=== PATIENT | female | born 1995 | race Caucasian/White ===

== ENCOUNTER 2018-07-12 12:22 | Outpatient (CLI) | payer BC ==
[2018-07-12 13:26] LABS: APPEARANCE,URINE CLEAR; BILIRUBIN,URINE NEGATIVE (NEGATIVE); COLOR,URINE STRAW; GLUCOSE, URINE NEGATIVE (NEGATIVE); KETONES,URINE NEGATIVE (NEGATIVE); LEUKOCYTE ESTERASE,URINE NEGATIVE (NEGATIVE); NITRITE,URINE NEGATIVE (NEGATIVE); PROTEIN,URINE NEGATIVE (NEGATIVE); URINE SPECIFIC GRAVITY 1.003; UROBILINOGEN,URINE NEGATIVE mg/dL (<2.0)
[2018-07-12 13:35] LABS: URINE AMPHETAMINES SCREEN NEGATIVE; URINE BARBITURATES SCREEN NEGATIVE; URINE BENZODIAZEPINES SCREEN NEGATIVE; URINE COCAINE SCREEN NEGATIVE; URINE MARIJUANA (THC) SCREEN NEGATIVE; URINE METHADONE SCREEN NEGATIVE; URINE PHENCYCLIDINE SCREEN NEGATIVE
[2018-07-12 13:42] LABS: UR PRO/CREAT RATIO RESULT 1.3 mg/mg (0.0-0.2); URINE CREATININE 14.9 mg/dL (16-327); URINE PROTEIN 19.3 mg/dL (<12)
[2018-07-12 13:54] LABS: ABSOLUTE EOSINOPHILS # (AUTO) 0.1 10^3/uL (0.0-0.6); ABSOLUTE LYMPHOCYTES (AUTO) 1.9 10^3/uL (0.5-4.7); ABSOLUTE MONOCYTES (AUTO) 0.8 10^3/uL (0.1-1.4); BASOPHILS % (AUTO) 0.3 % (0-2); EOSINOPHILS % (AUTO) 0.6 % (0-6); HEMATOCRIT 33.9 % (36.0-47.0); HEMOGLOBIN 11.6 g/dL (12.0-15.5); LYMPHOCYTES % (AUTO) 19.8 % (13-45); MEAN CORPUSCULAR HEMOGLOBIN 29.5 pg (27.0-33.4); MEAN CORPUSCULAR HGB CONC 34.1 g/dL (32.0-36.0); MEAN CORPUSCULAR VOLUME 86 fl (80-97); MONOCYTES % (AUTO) 7.7 % (3-13); PLATELET COUNT 240 10^3/uL (150-450); RED BLOOD COUNT 3.92 10^6/uL (3.72-5.28); RED CELL DISTRIBUTION WIDTH 13.2 % (11.5-14.0); SEGMENTED NEUTROPHILS % (AUTO) 71.6 % (42-78); TOTAL CELLS COUNTED % (AUTO) 100 %; WHITE BLOOD COUNT 9.8 10^3/uL (4.0-10.5)
[2018-07-12 14:13] LABS: ALANINE AMINOTRANSFERASE 29 U/L (9-52); ALKALINE PHOSPHATASE 151 U/L (38-126); ASPARTATE AMINO TRANSFERASE 21 U/L (14-36); BILIRUBIN,DIRECT 0.1 mg/dL (0.0-0.4); BILIRUBIN,TOTAL 0.2 mg/dL (0.2-1.3); BLOOD UREA NITROGEN 4 mg/dL (7-20); CALCIUM 9.5 mg/dL (8.4-10.2); GLUCOSE 78 mg/dL (75-110); POTASSIUM 4.6 mmol/L (3.6-5.0); TOTAL PROTEIN 5.5 g/dL (6.3-8.2); URIC ACID 3.7 mg/dL (2.5-6.2)
[2018-07-12 14:19] LABS: CARBON DIOXIDE 26 mmol/L (22-30); CHLORIDE 110 mmol/L (98-107); SODIUM 137.1 mmol/L (137-145)
[2018-07-12 14:23] LABS: ANION GAP 1 (5-19)
--- NOTE | 2018-07-12 16:56 | Non Stress Test Report ---
Non Stress Test Datetime Report Generated by CPN: 07/12/2018 16:56 DEMOGRAPHIC EGA NST: 32.4 INDICATION Indication for Study: Other Indication for Study (NST) Other: patient took b/p at home was high VITAL SIGNS Temperature - NST: 98.0 RESP - NST: 16 MONITORING Monitor Explained: Monitor Explained; Test Explained; Patient Verbalized Understanding Time on Monitor: 07/12/2018 14:06 Time off Monitor: 07/12/2018 14:40 NST Duration: 34 NST INTERVENTIONS NST Interventions: PO Hydration; Reposition Patient BABY A: [id number] BABY A Movement : Present Contraction Frequency : 0 FHR Baseline : 140 Accelerations : 15X15 Decelerations : None Variability : Moderate 6-25bpm NST Review: Meets Criteria for Reactive NST NST Review and Verified By : Alyx Nur NST Results: Reactive NST Results: Reactive NST REPORT Report Trigger: Send Report
--- NOTE | 2018-07-12 16:57 | RADIOLOGY REPORT (SQ) ---
EXAM DESCRIPTION: U/S OB LIMITED COMPLETED DATE/TIME: 07/12/2018 3:31 pm REASON FOR STUDY: pt request to look at placenta COMPARISON: None. TECHNIQUE: Limited transabdominal grayscale ultrasound for evaluation of specific requested obstetri cortney parameters. LIMITATIONS: None. FINDINGS: FHR: 135 beats per minute. PRESENTATION: Cephalic. PLACENTA: Anterior ANATOMY: Not assessed OTHER: No other significant findings. IMPRESSION: LIMITED OBSTETRICAL ULTRASOUND WITH MEASURED PARAMETERS DELINEATED ABOVE. Trimester of : Third trimester - 28 weeks to delivery. TECHNICAL DOCUMENTATION: JOB ID: [id number]- All Rights Reserved Reading location - IP/workstation name: [email or web address]
== END 2018-07-12 17:03 | disposition home or self-care (01) ==
LOC: LC 12:22
PROVIDERS: ATTEND Obstetrics & Gynecology
PROC: 4A1HXCZ Monitoring of Products of Conception, Cardiac Rate, External Approach (ICD-10-PCS; principal; 2018-07-12)
DX: O16.3 Unspecified maternal hypertension, third trimester (principal); Z3A.32 32 weeks gestation of pregnancy
CPT/HCPCS: 36415; 59025; 76815; 80053; 80307; 81001; 82570; 83615; 84156; 84550; 85025

== ENCOUNTER 2018-07-13 17:02 | Outpatient (CLI) | payer BC ==
--- NOTE | 2018-07-13 17:53 | Non Stress Test Report ---
Non Stress Test Datetime Report Generated by CPN: 07/13/2018 17:52 DEMOGRAPHIC EGA NST: 32.5 INDICATION Indication for Study: Other Indication for Study (NST) Other: LC URINE RESULTS Urine Glucose - NST: Positive MONITORING Monitor Explained: Monitor Explained; Test Explained; Patient Verbalized Understanding Time on Monitor: 07/13/2018 17:23 Time off Monitor: 07/13/2018 17:46 NST Duration: 23 NST INTERVENTIONS NST Interventions: None Physician Notified NST: Dr Luis BABY A: [id number] BABY A Movement : Present Contraction Frequency : none FHR Baseline : 145 Accelerations : 15X15 Variability : Moderate 6-25bpm NST Review: Meets Criteria for Reactive NST NST Results: Reactive NST REPORT Report Trigger: Send Report
[2018-07-13 18:27] LABS: 24 HOUR URINE PROTEIN RESULT 708 mg/day (42-225); URINE PROTEIN 19.6 mg/dL (<12)
== END 2018-07-13 18:58 | disposition home or self-care (01) ==
LOC: LC 17:02
PROVIDERS: ATTEND Obstetrics & Gynecology
PROC: 4A1HXCZ Monitoring of Products of Conception, Cardiac Rate, External Approach (ICD-10-PCS; principal; 2018-07-13)
DX: O16.3 Unspecified maternal hypertension, third trimester (principal); Z3A.32 32 weeks gestation of pregnancy
CPT/HCPCS: 59025; 84156

== ENCOUNTER 2018-07-24 16:10 | Outpatient (CLI) | payer BC ==
[2018-07-24 16:46] LABS: APPEARANCE,URINE CLEAR; BILIRUBIN,URINE NEGATIVE (NEGATIVE); COLOR,URINE COLORLESS; GLUCOSE, URINE NEGATIVE (NEGATIVE); KETONES,URINE NEGATIVE (NEGATIVE); LEUKOCYTE ESTERASE,URINE NEGATIVE (NEGATIVE); NITRITE,URINE NEGATIVE (NEGATIVE); PROTEIN,URINE NEGATIVE (NEGATIVE); URINE SPECIFIC GRAVITY 1.002; UROBILINOGEN,URINE NEGATIVE mg/dL (<2.0)
[2018-07-24 17:02] LABS: ABSOLUTE EOSINOPHILS # (AUTO) 0.1 10^3/uL (0.0-0.6); ABSOLUTE LYMPHOCYTES (AUTO) 2.3 10^3/uL (0.5-4.7); ABSOLUTE MONOCYTES (AUTO) 0.9 10^3/uL (0.1-1.4); ABSOLUTE NEUT (AUTO) 6.7 10^3/uL (1.7-8.2); BASOPHILS % (AUTO) 0.3 % (0-2); EOSINOPHILS % (AUTO) 0.9 % (0-6); HEMATOCRIT 35.9 % (36.0-47.0); HEMOGLOBIN 12.3 g/dL (12.0-15.5); LYMPHOCYTES % (AUTO) 22.6 % (13-45); MEAN CORPUSCULAR HEMOGLOBIN 29.3 pg (27.0-33.4); MEAN CORPUSCULAR HGB CONC 34.2 g/dL (32.0-36.0); MEAN CORPUSCULAR VOLUME 86 fl (80-97); MONOCYTES % (AUTO) 9.4 % (3-13); PLATELET COUNT 254 10^3/uL (150-450); RED BLOOD COUNT 4.19 10^6/uL (3.72-5.28); RED CELL DISTRIBUTION WIDTH 13.3 % (11.5-14.0); SEGMENTED NEUTROPHILS % (AUTO) 66.8 % (42-78); TOTAL CELLS COUNTED % (AUTO) 100 %; WHITE BLOOD COUNT 10.1 10^3/uL (4.0-10.5)
[2018-07-24 17:13] LABS: UR PRO/CREAT RATIO RESULT 2.9 mg/mg (0.0-0.2); URINE CREATININE 15.3 mg/dL (16-327); URINE PROTEIN 44.6 mg/dL (<12)
[2018-07-24 17:23] LABS: URINE AMPHETAMINES SCREEN NEGATIVE; URINE BARBITURATES SCREEN NEGATIVE; URINE BENZODIAZEPINES SCREEN NEGATIVE; URINE COCAINE SCREEN NEGATIVE; URINE MARIJUANA (THC) SCREEN NEGATIVE; URINE METHADONE SCREEN NEGATIVE; URINE PHENCYCLIDINE SCREEN NEGATIVE
[2018-07-24 17:30] LABS: ALANINE AMINOTRANSFERASE 15 U/L (9-52); ALBUMIN 3.3 g/dL (3.5-5.0); ALKALINE PHOSPHATASE 192 U/L (38-126); ANION GAP 9 (5-19); ASPARTATE AMINO TRANSFERASE 19 U/L (14-36); BILIRUBIN,DIRECT 0.2 mg/dL (0.0-0.4); BILIRUBIN,TOTAL 0.3 mg/dL (0.2-1.3); BLOOD UREA NITROGEN 5 mg/dL (7-20); CALCIUM 9.4 mg/dL (8.4-10.2); CARBON DIOXIDE 22 mmol/L (22-30); CHLORIDE 107 mmol/L (98-107); SODIUM 137.7 mmol/L (137-145); TOTAL PROTEIN 5.8 g/dL (6.3-8.2); URIC ACID 4.3 mg/dL (2.5-6.2)
[2018-07-24 17:38] LABS: GLUCOSE 62 mg/dL (75-110)
== END 2018-07-24 17:56 | disposition home or self-care (01) ==
LOC: LC 16:10
PROVIDERS: ATTEND Obstetrics & Gynecology Gynecology
PROC: 4A1HXCZ Monitoring of Products of Conception, Cardiac Rate, External Approach (ICD-10-PCS; principal; 2018-07-24)
DX: O47.03 False labor before 37 completed weeks of gestation, third trimester (principal); O16.3 Unspecified maternal hypertension, third trimester; Z3A.24 24 weeks gestation of pregnancy
CPT/HCPCS: 36415; 80053; 80307; 81001; 82570; 83615; 84156; 84550; 85025

== ENCOUNTER 2018-08-05 16:05 | Outpatient (CLI) | payer BC ==
[2018-08-05 16:38] LABS: APPEARANCE,URINE CLEAR; BILIRUBIN,URINE NEGATIVE (NEGATIVE); COLOR,URINE STRAW; GLUCOSE, URINE NEGATIVE (NEGATIVE); KETONES,URINE NEGATIVE (NEGATIVE); LEUKOCYTE ESTERASE,URINE TRACE (NEGATIVE); NITRITE,URINE NEGATIVE (NEGATIVE); PROTEIN,URINE 100 mg/dL (NEGATIVE); URINE SPECIFIC GRAVITY 1.004; UROBILINOGEN,URINE NEGATIVE mg/dL (<2.0)
[2018-08-05 16:58] LABS: URINE AMPHETAMINES SCREEN NEGATIVE; URINE BARBITURATES SCREEN NEGATIVE; URINE BENZODIAZEPINES SCREEN NEGATIVE; URINE COCAINE SCREEN NEGATIVE; URINE MARIJUANA (THC) SCREEN NEGATIVE; URINE METHADONE SCREEN NEGATIVE; URINE PHENCYCLIDINE SCREEN NEGATIVE
[2018-08-05 17:08] LABS: UR PRO/CREAT RATIO RESULT 6.4 mg/mg (0.0-0.2); URINE CREATININE 28.9 mg/dL (16-327); URINE PROTEIN 183.6 mg/dL (<12)
[2018-08-05] MEDS ORDERED: OXYCODONE-ACETAMINOPHEN 5-325 MG TABLET ONE (17:27)
[2018-08-05] MEDS ORDERED: OXYCODONE-ACETAMINOPHEN 5-325 MG TABLET PO ONE (17:30)
[2018-08-05 17:38] LABS: ABSOLUTE EOSINOPHILS # (AUTO) 0.1 10^3/uL (0.0-0.6); ABSOLUTE LYMPHOCYTES (AUTO) 1.7 10^3/uL (0.5-4.7); ABSOLUTE MONOCYTES (AUTO) 0.7 10^3/uL (0.1-1.4); ABSOLUTE NEUT (AUTO) 6.5 10^3/uL (1.7-8.2); BASOPHILS % (AUTO) 0.3 % (0-2); EOSINOPHILS % (AUTO) 0.9 % (0-6); HEMATOCRIT 33.4 % (36.0-47.0); HEMOGLOBIN 11.6 g/dL (12.0-15.5); LYMPHOCYTES % (AUTO) 18.8 % (13-45); MEAN CORPUSCULAR HEMOGLOBIN 29.6 pg (27.0-33.4); MEAN CORPUSCULAR HGB CONC 34.6 g/dL (32.0-36.0); MEAN CORPUSCULAR VOLUME 85 fl (80-97); MONOCYTES % (AUTO) 7.5 % (3-13); PLATELET COUNT 219 10^3/uL (150-450); RED BLOOD COUNT 3.91 10^6/uL (3.72-5.28); RED CELL DISTRIBUTION WIDTH 13.1 % (11.5-14.0); SEGMENTED NEUTROPHILS % (AUTO) 72.5 % (42-78); TOTAL CELLS COUNTED % (AUTO) 100 %
[2018-08-05 18:05] LABS: ALANINE AMINOTRANSFERASE 21 U/L (9-52); ALBUMIN 2.6 g/dL (3.5-5.0); ALKALINE PHOSPHATASE 180 U/L (38-126); ANION GAP 5 (5-19); ASPARTATE AMINO TRANSFERASE 19 U/L (14-36); BILIRUBIN,DIRECT 0.1 mg/dL (0.0-0.4); BILIRUBIN,TOTAL 0.2 mg/dL (0.2-1.3); BLOOD UREA NITROGEN 7 mg/dL (7-20); CALCIUM 8.6 mg/dL (8.4-10.2); CARBON DIOXIDE 23 mmol/L (22-30); CHLORIDE 108 mmol/L (98-107); GLUCOSE 87 mg/dL (75-110); POTASSIUM 3.9 mmol/L (3.6-5.0); SODIUM 136.1 mmol/L (137-145); URIC ACID 5.1 mg/dL (2.5-6.2)
--- NOTE | 2018-08-05 18:26 | Non Stress Test Report ---
Non Stress Test Datetime Report Generated by CPN: 08/05/2018 18:25 DEMOGRAPHIC EGA NST: 36.0 INDICATION Indication for Study: Ordered by Provider MONITORING Monitor Explained: Monitor Explained; Test Explained; Patient Verbalized Understanding Time on Monitor: 08/05/2018 16:22 Time off Monitor: 08/05/2018 17:43 NST Duration: 81 NST INTERVENTIONS NST Interventions: None Physician Notified NST: A. Andrade, CNM BABY A: [id number] BABY A Movement : Present Contraction Frequency : none FHR Baseline : 135 Accelerations : 15X15 Decelerations : None Variability : Moderate 6-25bpm NST Review: Does Not Meet Criteria for Reactive NST NST Review and Verified By : Mónica Mendoza RN NST Results: Reactive NST REPORT Report Trigger: Send Report
== END 2018-08-05 18:29 | disposition home or self-care (01) ==
LOC: LC 16:05
PROVIDERS: ATTEND Obstetrics & Gynecology
PROC: 4A1HXCZ Monitoring of Products of Conception, Cardiac Rate, External Approach (ICD-10-PCS; principal; 2018-08-05)
DX: Z34.93 Encounter for supervision of normal pregnancy, unspecified, third trimester (principal)
CPT/HCPCS: 36415; 59025; 80053; 80307; 81005; 82570; 83615; 84156; 84550; 85025

== ENCOUNTER 2018-08-08 16:14 | Inpatient (IN) | payer BC ==
[2018-08-08 17:13] LABS: APPEARANCE,URINE CLEAR; BILIRUBIN,URINE NEGATIVE (NEGATIVE); COLOR,URINE STRAW; GLUCOSE, URINE NEGATIVE (NEGATIVE); KETONES,URINE NEGATIVE (NEGATIVE); LEUKOCYTE ESTERASE,URINE NEGATIVE (NEGATIVE); NITRITE,URINE NEGATIVE (NEGATIVE); PROTEIN,URINE 100 mg/dL (NEGATIVE); URINE SPECIFIC GRAVITY 1.006; UROBILINOGEN,URINE NEGATIVE mg/dL (<2.0)
[2018-08-08 17:29] LABS: URINE AMPHETAMINES SCREEN NEGATIVE; URINE BARBITURATES SCREEN NEGATIVE; URINE BENZODIAZEPINES SCREEN NEGATIVE; URINE COCAINE SCREEN NEGATIVE; URINE MARIJUANA (THC) SCREEN NEGATIVE; URINE METHADONE SCREEN NEGATIVE
[2018-08-08 17:32] LABS: URINE PHENCYCLIDINE SCREEN NEGATIVE
--- NOTE | 2018-08-08 17:32 | Non Stress Test Report ---
Non Stress Test Datetime Report Generated by CPN: 08/08/2018 17:32 DEMOGRAPHIC EGA NST: 36.3 INDICATION Indication for Study: Ordered by Provider MONITORING Monitor Explained: Monitor Explained; Test Explained; Patient Verbalized Understanding Time on Monitor: 08/08/2018 17:00 Time off Monitor: 08/08/2018 17:31 NST Duration: 31 NST INTERVENTIONS NST Interventions: None Physician Notified NST: Dr. Luis BABY A: [id number] BABY A Movement : Present Movement : Present Contraction Frequency : none FHR Baseline : 135 Accelerations : 15X15 Decelerations : None Variability : Moderate 6-25bpm NST Review: Meets Criteria for Reactive NST NST Review: Meets Criteria for Reactive NST NST Review and Verified By : Abraham Reza RN NST Results: Reactive NST REPORT Report Trigger: Send Report
[2018-08-08 17:36] LABS: URINE CREATININE 41.3 mg/dL (16-327)
[2018-08-08 17:46] LABS: UR PRO/CREAT RATIO RESULT 10.3 mg/mg (0.0-0.2); URINE PROTEIN 423.7 mg/dL (<12)
[2018-08-08 17:59] LABS: HEMATOCRIT 34.4 % (36.0-47.0); HEMOGLOBIN 11.8 g/dL (12.0-15.5); MEAN CORPUSCULAR HGB CONC 34.3 g/dL (32.0-36.0); MEAN CORPUSCULAR VOLUME 85 fl (80-97); PLATELET COUNT 242 10^3/uL (150-450); RED BLOOD COUNT 4.06 10^6/uL (3.72-5.28); RED CELL DISTRIBUTION WIDTH 13.1 % (11.5-14.0); WHITE BLOOD COUNT 8.8 10^3/uL (4.0-10.5)
[2018-08-08 18:15] LABS: ALANINE AMINOTRANSFERASE 17 U/L (9-52); ALBUMIN 2.8 g/dL (3.5-5.0); ALKALINE PHOSPHATASE 194 U/L (38-126); ANION GAP 6 (5-19); ASPARTATE AMINO TRANSFERASE 20 U/L (14-36); BILIRUBIN,DIRECT 0.1 mg/dL (0.0-0.4); BILIRUBIN,TOTAL 0.2 mg/dL (0.2-1.3); BLOOD UREA NITROGEN 10 mg/dL (7-20); CALCIUM 9.4 mg/dL (8.4-10.2); CARBON DIOXIDE 23 mmol/L (22-30); CHLORIDE 108 mmol/L (98-107); GLUCOSE 72 mg/dL (75-110); POTASSIUM 4.8 mmol/L (3.6-5.0); SODIUM 136.9 mmol/L (137-145); TOTAL PROTEIN 5.2 g/dL (6.3-8.2); URIC ACID 5.6 mg/dL (2.5-6.2)
[2018-08-08] MEDS ORDERED: HYDRALAZINE HCL INJ/PF 20 MG/1 ML SDV ONE ×2 (18:38→19:05)
--- NOTE | 2018-08-08 19:19 | Admission Physical ---
Datetime Report Generated by CPN: 08/08/2018 19:19 CURRENT ADMISSION Chief Complaint: Sent from OB Office for Evaluation and Treatment - Please Specify Indication for Induction: PreEclampsia Indication for Induction- Other: severe range bps today Admit Impression : Induction of Labor Admit Plan: Initiate Labor Induction Protocol ALLERGIES Medication Allergies: Unknown Medication Allergies: No Known Allergies (08/08/2018) Latex: Unknown Food Allergies: no Environmental Allergies: no OBSTETRICAL HISTORY EDC: 09/02/2018 00:00 : 1 Para: 0 Term: 0 : 0 SAB: 0 IAB: 0 Ectopic: 0 Livin Cesareans: 0 VBACs: 0 Multiple Births: 0 Gestational Diabetes: No Rh Sensitization: No Incompetent Cervix: No FREDDIE: No Infertility: No ART Treatment: No Uterine Anomaly: No IUGR: No Hx Previous C/S: No Macrosomia: No Hx Loss/Stillborn: No PIH: No Hx : No Placenta Previa/Abruption: No Depression/PP Depression: No PTL/PROM: No Post Hemorrhage: No Current Procedures: Ultrasound Obstetrical History Comments: G1 - Current SEE RECORDS Alcohol: No Marijuana : No Cocaine: No Other Illicit Drugs: No Cigarettes: Never Smoker. [id number] MEDICAL HISTORY Diabetes: No Blood Transfusion: No Pulmonary Disease (Asthma, TB): No Breast Disease: No Hypertension: No Ramp Supervisor Surgery: No Heart Disease: No Hosp/Surgery: No Autoimmune Disorder: No Anesthetic Complications: No Kidney Disease: No Abnormal Pap Smear: No Neuro/Epilepsy: No Psychiatric Disorders: No Other Medical Diseases: No Hepatitis/Liver Disease: No Significant Family History: No Varicosities/Phlebitis: No Trauma/Violence : No Thyroid Dysfunction: No INFECTIOUS HISTORY Gonorrhea: No Genital Herpes: No Chlamydia: No Tuberculosis: No Syphilis: No Hepatitis: No HIV/AIDS Exposure: No Rash or Viral Illness: No HPV: No PHYSICAL EXAM General: Normal HEENT: Normal Neurologic: Normal Thyroid: Normal Heart: Normal Lungs: Normal Breast: Normal Back: Normal Abdomen: Normal Genitourinary Exam: Normal Extremities: Normal DTRs: Normal Pelvic Type: Adequate Vital Signs: Reviewed VAGINAL EXAM Dilatation: 0 Effacement: 0 Station: -3 MEMBRANES Pooling: Negative Membranes: Intact FETUS A EGA: 36.3 Monitoring: External US FHR- Baseline: 140 Variability: Moderate 6-25bpm Accelerations: 15X15 Decelerations: None FHR Category: Category I Estimated Weight (gm): 3100 Presentation: Vertex Admit Comment: pt and family advised of need for induction secondary to severe range bps and known preE based on 24 hour urine protein >1100. I also advised that outcome can be complicated due to EGA. I advised patient and her family to expect NICU admission and possible extensive interventions depending on how tolerates. i counseled patient and her family that induction and preE does increase the risk of emergent delivery via c/section. PLANS FOR LABOR AND DELIVERY Labor and Delivery: None Pain Management: Epidural Feeding Preference: Both Benefit of Breast Feed Discussed: Yes Circumcision: N/A INFORMED CONSENT Signature: with User ID: [email or web address]
[2018-08-08] MEDS ORDERED: DINOPROSTONE 10 MG VAGINAL INSERT.SR PV PRN (19:24)
[2018-08-08] MEDS ORDERED: RINGERS SOLUTION,LACTATED 300 ML IV ONE (19:24)
[2018-08-08] MEDS ORDERED: OXYTOCIN/NORMAL SALINE 20 UNIT/1,000 ML RTUINJ IV PRN (19:24)
[2018-08-08] MEDS ORDERED: DINOPROSTONE 10 MG VAGINAL INSERT.SR ONE (19:53)
[2018-08-08] MEDS: RINGERS SOLUTION,LACTATED 1,000 ML IV PRN (20:16)
[2018-08-08] MEDS ORDERED: ACETAMINOPHEN 325 MG TABLET ONE (22:04)
[2018-08-08] MEDS ORDERED: ONDANSETRON HCL INJ/PF 4 MG/2 ML SDV ONE (23:12)
[2018-08-09] MEDS ORDERED: PROMETHAZINE HCL INJ 25 MG/1 ML VIAL ONE (00:20)
[2018-08-09] MEDS ORDERED: NALBUPHINE HCL INJ 10 MG/1 ML AMPULE ONE (00:20)
[2018-08-09] MEDS ORDERED: HYDRALAZINE HCL INJ/PF 20 MG/1 ML SDV ONE (07:52)
[2018-08-09] MEDS ORDERED: MISOPROSTOL 0.1 MG TABLET ONE (08:21)
--- NOTE | 2018-08-09 09:27 | L&D Progress Notes ---
PROGRESS NOTES Datetime Report Generated by CPN: 08/09/2018 09:26 PROGRESS NOTE Impression Other: pre-eclampsia Plan: Augmentation; Anticipate Vaginal Delivery Comment: Assuming care of this 23yo G1 @ 36+4 weeks admitted for IOL 2/2 pre-eclampsia w/severe features. Pt received 2 doses of hydralazine yesterday, approx 1900 and then 5mg today at 0800. BPs have been normo-tensive since. Pt has had 12 hours of cervidal, with no change in cervical dilation. Gave 50mcg PO cytotec SL at 0845. GBS unknown, O neg. Plan to continue with IOL and anticipate . Will start PCN for GBS unknown once in active labor, mag for worsening signs of preE. Will treat severe-range BPs prn, cont with hydralazine until max'd out. VAGINAL EXAM Dilatation: 0 Effacement: 0 Station: -3 LAST VAGINAL EXAM-NURSING Dilitation: closed Dilitation: closed Dilitation: 0.0 Effacement: thick Effacement: thick Station: high Station: high Contractions: RN at bedside adjusting EFM, MEMBRANES Pooling: Negative Membranes: Intact FETUS A FHR - Baseline: 135 Decelerations: None FHR Category: Category I : 36+4 : 36.3 Estimated Weight (gm): 3100 Presentation: Vertex SIGNATURE SIGNATURE: [id number];14,[id number];13,[id number] SIGNATURE: 13,[id number];14,[id number] SIGNATURE: 14,[id number] SIGNATURE: 14,[id number] SIGNATURE: 14,[id number] SIGNATURE: 14,[id number] Signature: with User ID: Dalton Signature: with User ID: Dalton : with User ID: Dalton
[2018-08-09] MEDS ORDERED: BETAMET ACET/BETAMET NA INJ 6 MG/1 ML ONE (10:06)
--- NOTE | 2018-08-09 10:54 | L&D Progress Notes ---
PROGRESS NOTES Datetime Report Generated by CPN: 08/09/2018 10:54 PROGRESS NOTE Comment: Pt given Bethamethasone per ACOG recommendations for FLM with late-term delivery. Pr/Cr ratio is 10.2 and 3 severe range BPs have been treated. Will start magnesium w/initiation of Pitocin for GTN w/severe features. Pt has been counselled and all questions answered. FETUS C SIGNATURE: 13,[id number];14,[id number];10,[id number] Signature: with User ID: ChrJones
[2018-08-09] MEDS ORDERED: MAGNESIUM SULFATE 4 GM/100 ML RTUPB IV ONE (17:41)
[2018-08-09] MEDS ORDERED: MAGNESIUM SULFATE 20 GM/500 ML RTUINJ IV ONE (17:41)
[2018-08-09] MEDS ORDERED: OXYTOCIN/NORMAL SALINE 20 UNIT/1,000 ML RTUINJ ONE (17:41)
[2018-08-09] MEDS ORDERED: ZOLPIDEM TARTRATE 5 MG TABLET ONE (23:39)
[2018-08-10] MEDS ORDERED: MAGNESIUM SULFATE 20 GM/500 ML RTUINJ IV ONE (04:29)
--- NOTE | 2018-08-10 04:50 | L&D Progress Notes ---
PROGRESS NOTES Datetime Report Generated by CPN: 08/10/2018 04:50 PROGRESS NOTE Plan: Continue Present Management Comment: Pt received 2 doses of cytotec during day and then pitocin w/mag was started. irreg ctxs, min to mod amy, no acels, no decels noted. UOP has been decreased, most recent was 45cc/hr. Pt denies changes in vision, headache, RUQ pain. reports an increase in peripheral edema. No severe BPs noted. No painful ctxs, no LOF, no VB. Plan to apply maternal oxygen, change maternal position, and cont to monitor closely. Will obtain a mag level and expediate delivery for maternal indication however at this point cont w/current plan. VAGINAL EXAM Dilitation: 0.0 Dilitation: closed Effacement: thick Effacement: thick Station: -3 Station: high Contractions: no ctx detected toco adjusted Contractions: no ctx detected. toco adjusted Contractions: no ctx detected. toco adjusted Contractions: no ctx Contractions: no ctx Contractions: no ctx abdomen soft. pt does no feel any ctx. Contractions: no ctx abdomen soft Contractions: irritability Contractions: irritability Contractions: irritability Contractions: irritability Contractions: irregular cramping Contractions: pt reports mild irregular cramping MEMBRANES Membranes: Intact FETUS C SIGNATURE: 10,[id number];14,[id number];13,[id number] Signature: with User ID: ChrJones
[2018-08-10] MEDS ORDERED: OXYTOCIN/NORMAL SALINE 20 UNIT/1,000 ML RTUINJ ONE (19:27)
[2018-08-10] MEDS ORDERED: FENTANYL/BUPIVACAINE/NS/PF 300 MCG/150 ML RTUINJ EPI ONE (20:57)
[2018-08-10] MEDS ORDERED: EPHEDRINE SULFATE INJ 50 MG/1 ML AMPULE ONE (20:57)
[2018-08-10] MEDS ORDERED: PHENYLEPHRINE HCL INJ/PF 10 MG/1 ML SDV ONE (20:57)
[2018-08-10] MEDS ORDERED: FENTANYL CITRATE INJ/PF 100 MCG/2 ML AMPUL ONE (20:57)
[2018-08-10] MEDS ORDERED: BUPIVACAINE HCL 0.25 % INJ/PF (2.5 MG/1 ML) 30 ML VIAL ONE (20:58)
[2018-08-10] MEDS ORDERED: LIDOCAINE 1.5%/EPINEPHRINE INJ-PF 30 ML SDV ONE (21:01)
[2018-08-10 21:09] LABS: HEMATOCRIT 33.8 % (36.0-47.0); HEMOGLOBIN 11.5 g/dL (12.0-15.5); MEAN CORPUSCULAR HEMOGLOBIN 28.9 pg (27.0-33.4); MEAN CORPUSCULAR VOLUME 85 fl (80-97); PLATELET COUNT 254 10^3/uL (150-450); RED BLOOD COUNT 3.98 10^6/uL (3.72-5.28); RED CELL DISTRIBUTION WIDTH 13.4 % (11.5-14.0); WHITE BLOOD COUNT 14.5 10^3/uL (4.0-10.5)
[2018-08-10 21:28] LABS: ALANINE AMINOTRANSFERASE 38 U/L (9-52); ALBUMIN 2.8 g/dL (3.5-5.0); ALKALINE PHOSPHATASE 213 U/L (38-126); ASPARTATE AMINO TRANSFERASE 24 U/L (14-36); BILIRUBIN,DIRECT 0.1 mg/dL (0.0-0.4); BILIRUBIN,TOTAL 0.3 mg/dL (0.2-1.3); BLOOD UREA NITROGEN 15 mg/dL (7-20); CALCIUM 8.7 mg/dL (8.4-10.2); GLUCOSE 82 mg/dL (75-110); POTASSIUM 4.5 mmol/L (3.6-5.0); TOTAL PROTEIN 5.4 g/dL (6.3-8.2)
[2018-08-10 21:41] LABS: ANION GAP 6 (5-19); CARBON DIOXIDE 21 mmol/L (22-30); CHLORIDE 110 mmol/L (98-107); SODIUM 136.7 mmol/L (137-145)
[2018-08-11] MEDS ORDERED: PENICILLIN G-K 5 MILLION UNIT VIAL ONE (01:19)
[2018-08-11] MEDS ORDERED: LIDOCAINE 1% INJ-PF (10 MG/ML) 30 ML SDV ONE (01:43)
[2018-08-11] MEDS ORDERED: OXYTOCIN/NORMAL SALINE 0 UNIT/0 ML RTUINJ ONE (01:43)
[2018-08-11] MEDS ORDERED: MISOPROSTOL 0.2 MG TABLET ONE (01:43)
[2018-08-11] MEDS ORDERED: PENICILLIN G POTASSIUM 5,000,000 UNIT in DEXTROSE 5%-WATER 100 ML IV ONE (02:00)
[2018-08-11] MEDS ORDERED: LIDOCAINE 2%/EPINEPHRINE INJ 20 ML VIAL ONE (03:36)
[2018-08-11] MEDS ORDERED: SODIUM BICARBONATE 8.4% INJ 50 MEQ/50 ML DISP.SYRIN ONE (03:36)
[2018-08-11] MEDS ORDERED: CEFAZOLIN 2 GM/D5W RTU 2 GM/50 ML RTUPB IV ONE (03:36)
[2018-08-11] MEDS ORDERED: CITRIC ACID/SODIUM CITRATE ORAL SOLN 15 ML UDCUP ONE (03:36)
[2018-08-11] MEDS ORDERED: OXYCODONE-ACETAMINOPHEN 5-325 MG TABLET PO PRN (04:56)
[2018-08-11] MEDS ORDERED: DIPH/PERTUSS(ACELL)/TETANUS VAC/PF 0.5 ML SYR (>=10YO) IM PRN (04:56)
[2018-08-11] MEDS ORDERED: OXYTOCIN/NORMAL SALINE 20 UNIT/1,000 ML RTUINJ IV PRN (04:56)
[2018-08-11] MEDS ORDERED: MORPHINE SULFATE 10 MG/ML INJ IV PRN ×2 (04:56→04:57)
[2018-08-11] MEDS ORDERED: PROMETHAZINE HCL INJ 25 MG/1 ML VIAL IV PRN ×3 (04:56→04:57)
[2018-08-11] MEDS ORDERED: MEASLES,MUMPS&RUBELLA VACC/PF 0.5 ML VIAL SUBCUT PRN (04:56)
[2018-08-11] MEDS ORDERED: ACETAMINOPHEN 1,000 MG/100 ML RTUPB IV PRN (04:56)
[2018-08-11] MEDS ORDERED: RINGERS SOLUTION,LACTATED 1,000 ML IV PRN (04:56)
[2018-08-11] MEDS ORDERED: ACETAMINOPHEN 325 MG TABLET PO PRN (04:56)
[2018-08-11] MEDS ORDERED: FENTANYL CITRATE INJ/PF 100 MCG/2 ML AMPUL IV PRN ×3 (04:57)
[2018-08-11] MEDS ORDERED: MEPERIDINE HCL/PF INJ 25 MG/1 ML DISP.SYRIN IV PRN (04:57)
[2018-08-11] MEDS ORDERED: ONDANSETRON HCL INJ/PF 4 MG/2 ML SDV IV PRN (04:57)
[2018-08-11] MEDS ORDERED: DIPHENHYDRAMINE HCL 50 MG/ML VIAL IV PRN (04:57)
[2018-08-11] MEDS ORDERED: MAGNESIUM SULFATE 20 GM/500 ML RTUINJ IV PRN (04:58)
[2018-08-11] MEDS ORDERED: AMPICILLIN SOD/SULBACTAM 3 GM VIAL IV SCH (05:00)
[2018-08-11] MEDS ORDERED: MAGNESIUM SULFATE 20 GM/500 ML RTUINJ IV ONE (05:06)
[2018-08-11] MEDS ORDERED: AMPICILLIN SOD/SULBACTAM 3 GM VIAL ONE ×2 (05:06→15:10)
[2018-08-11] MEDS ORDERED: MAGNESIUM SULFATE 4 GM/100 ML RTUPB IV ONE ×2 (05:06→05:30)
[2018-08-11] MEDS ORDERED: FENTANYL CITRATE INJ/PF 100 MCG/2 ML AMPUL ONE (05:11)
[2018-08-11 05:35] LABS: HEMATOCRIT 29.5 % (36.0-47.0); HEMOGLOBIN 9.9 g/dL (12.0-15.5); MEAN CORPUSCULAR HEMOGLOBIN 28.9 pg (27.0-33.4); MEAN CORPUSCULAR HGB CONC 33.7 g/dL (32.0-36.0); MEAN CORPUSCULAR VOLUME 86 fl (80-97); PLATELET COUNT 225 10^3/uL (150-450); RED BLOOD COUNT 3.44 10^6/uL (3.72-5.28); RED CELL DISTRIBUTION WIDTH 13.6 % (11.5-14.0); WHITE BLOOD COUNT 16.5 10^3/uL (4.0-10.5)
[2018-08-11 05:47] LABS: ALANINE AMINOTRANSFERASE 16 U/L (9-52); ALBUMIN 2.3 g/dL (3.5-5.0); ALKALINE PHOSPHATASE 175 U/L (38-126); ANION GAP 6 (5-19); ASPARTATE AMINO TRANSFERASE 18 U/L (14-36); BILIRUBIN,DIRECT 0.2 mg/dL (0.0-0.4); BILIRUBIN,TOTAL 0.2 mg/dL (0.2-1.3); BLOOD UREA NITROGEN 14 mg/dL (7-20); CALCIUM 7.6 mg/dL (8.4-10.2); CARBON DIOXIDE 21 mmol/L (22-30); CHLORIDE 110 mmol/L (98-107); GLUCOSE 94 mg/dL (75-110); POTASSIUM 4.2 mmol/L (3.6-5.0); SODIUM 136.6 mmol/L (137-145); TOTAL PROTEIN 3.9 g/dL (6.3-8.2); URIC ACID 6.8 mg/dL (2.5-6.2)
[2018-08-11] MEDS ORDERED: PENICILLIN G POTASSIUM 2,500,000 UNIT in DEXTROSE 5%-WATER 50 ML IV SCH (06:00)
--- NOTE | 2018-08-11 06:19 | Delivery Summary ---
Del Sum A-C Datetime Report Generated by CPN: 08/11/2018 06:18 DELIVERY PERSONNEL DELIVERY PERSONNEL: [id number] Delivery Doctor:: Syeda Smith MD Anesthesiologist:: Celia Stearns MD YOLK SPRAY DRIER:: Jyothi Morgan CRNA Labor and Delivery Nurse:: Rula Ochoa RN Laborer Mine:: Rula Ochoa RN Neonatal Nurse Practitioner:: JUWAN Porter Nursery Nurse:: Mariana Arnold RN Nursery Nurse:: Jeanine Cole RN Montessori Toddler Teacher/SIGNAL REPAIRER: ST Yonas Montessori Toddler Teacher/SIGNAL REPAIRER: Jerrica Alamo, ST MATERNAL INFORMATION Delivery Anesthesia: Epidural Medications After Delivery: Pitocin Drip 20 Units/1000ml NSS Maternal Complications: Other Complication Details: preeclampsia, LABOR SUMMARY EDC: 09/02/2018 00:00 No. Babies in Womb: 1 Attempted: No Labor Anesthesia: Epidural LABOR INFORMATION Reason for Induction: Not Applicable Onset of Labor: 08/10/2018 20:40 Cervical Ripening Agents: Cervidil; [place] Balloon Oxytocin: Induction Group B Beta Strep: Negative Antibiotics # of Doses: 1 Antibiotics Time of Last Dose: 0133 Name of Antibiotic Given: pcn Steroids Given: Partial Course; > 24 Hours before Delivery Reason Steroids Not Administered: Not Applicable MEMBRANES Membranes Rupture Method: Spontaneous Rupture of Membranes: 08/10/2018 07:30 Length of Rupture (hr): 20.58 Amniotic Fluid Color: Clear Amniotic Fluid Amount: Small Amniotic Fluid Odor: Normal STAGES OF LABOR Stage 3 hr: 0 Stage 3 min: 1 Total Time in Labor hr: 7 Total Time in Labor min: 26 VAGINAL DELIVERY Episiotomy: None Laceration #1: None Laceration Extension #1: N/A Sponge Count Correct: N/A Sharps Count Correct: N/A CSECTION DELIVERY Primary Indication: Failed Induction Secondary Indication: Secondary Arrest of Dilatation CSection Urgency: Non-Scheduled CSection Incidence: Primary Labor: Labor Elective: N/A CSection Incision: Lower Uterine Transverse BABY A INFORMATION Infant Delivery Date/Time: 08/11/2018 04:05 Method of Delivery: Born in Route : No : N/A Forceps: N/A Vacuum Extraction: N/A Shoulder Dystocia : No PRESENTATION/POSITION BABY A Presentation: Cephalic Cephalic Presentation: Vertex Breech Presentation: N/A PLACENTA INFORMATION BABY A Placenta Delivery Time : 08/11/2018 04:06 Placenta Method of Delivery: Manual Removal Placenta Status: Delivered SCORES BABY A Heart Rate 1 min: Slow, Below 100 bpm Resp Effort 1 min: Absent Reflex Irritability 1 min: No Response Muscle Tone 1 min: Flaccid Color 1 min: Blue/Pale Resuscitation Effort 1 min: Tactile Stimulation; PPV/NCPAP SCORE 1 MIN: 1 Heart Rate 5 min: >100 bpm Resp Effort 5 min: Good Cry Reflex Irritability 5 min: Grimace Muscle Tone 5 min: Some Flexion of Extremities Color 5 min: Body [place], Extremities Blue Resuscitation Effort 5 min: Tactile Stimulation; PPV/NCPAP SCORE 5 MIN: 7 Heart Rate 10 min: >100 bpm Resp Effort 10 min: Good Cry Reflex Irritability 10 min: Cough or Sneeze or Pulls Away Muscle Tone 10 min: Active Motion Color 10 min: Body [place], Extremities Blue Resuscitation Effort 10 min: Tactile Stimulation SCORE 10 MIN: 9 INFORMATION BABY A Gestational Age at Delivery: 36.6 Gestational Status: Late - 34- 36.6 Weeks Infant Outcome : Liveborn Infant Condition : Stable Sex: Female IDENTIFICATION BABY A Verification Date/Time: 08/11/2018 04:31 ID Band Number: [id number] Mother's Name Verified: Yes Infant RN Verifying Infant: rn lattibeaudeir Additional Verifying Personnel: rn arnold WEIGHT/LENGTH BABY A Birthweight (gm): 2602 Infant Weight (lb): 5 Weight (oz): 12 Length (in): 20.50 Length (cm): 52.07 CORD INFORMATION BABY A No. Cord Vessels: 3 Nuchal Cord : N/A Cord Blood Taken: Yes-For Eval (Mom's Blood Type - or O+) Infant Suction: Mouth ASSESSMENT BABY A Skin to Skin: No BABY B INFORMATION : N/A
[2018-08-11] MEDS ORDERED: MORPHINE SULFATE 10 MG/ML INJ ONE (06:41)
--- NOTE | 2018-08-11 08:38 | OPERATIVE REPORT E ---
Operative Report NAME: CATHERINE ZAMORANO : 1995 AGE: 23Y DATE OF SURGERY: 08/11/2018 ROOM: LR200 PREOPERATIVE DIAGNOSES: 1. IUP at 36 weeks and 6 days. 2. Severe preeclampsia. 3. Failed induction, failure to progress. POSTOPERATIVE DIAGNOSES: 1. IUP at 36 weeks and 6 days. 2. Severe preeclampsia. 3. Failed induction, failure to progress. OPERATION: Low-transverse hysterotomy section. SURGEON: CONNIE COTTON M.D. ANESTHESIA: Celia Stearns M.D. with epidural and Jyothi Cox CRNA. ESTIMATED BLOOD LOSS: 650 mL. COMPLICATIONS: None. PATHOLOGY: None. FINDINGS: Female infant in cephalic presentation with Apgars of 7 and 8. PROCEDURE IN DETAIL: The patient was taken to the operating room, prepared and draped in a normal sterile fashion in the supine position with a leftward tilt. A transverse skin incision was made with a scalpel and carried through to the underlying layer of fascia with the same scalpel. The fascia was incised in the midline and extended laterally with Jovanni. The fascia was dissected from the rectus muscles sharply with Jovanni and the rectus muscle was divided. Peritoneal cavity was entered bluntly with good visualization of the bladder and the uterus. A bladder blade was inserted. The hysterotomy was nicked with a scalpel and extended laterally with surgeon finger fracture. The infant was then delivered atraumatically. The nose and mouth were suctioned with a suction bulb. Cord was clamped and cut, and the infant was handed off to awaiting pediatricians. Cord blood was collected. The placenta was removed manually. The uterus was exteriorized and cleared of clots and debris. The hysterotomy was closed with 0 Monocryl in a running, locked fashion. A second layer of the same suture was used to imbricate to ensure hemostasis. The uterus was returned to the abdomen. Peritoneal cavity was cleared of clots and debris. The rectus muscle and peritoneum were reapproximated with a mattress stitch of 2-0 chromic. The fascia was closed with 0 Vicryl, the subcutaneous layer was closed with plain catgut, and the skin was closed with 4-0 Vicryl. The patient tolerated the procedure well. Sponge, lap and needle counts were correct x2, and the patient was taken to recovery in stable condition. DICTATING PHYSICIAN: CONNIE COTTON M.D. [id number] PHY#: [id number] ID: [id number] JOB#: [id number] ACCT: [id number] cc:CONNIE COTTON M.D. >
[2018-08-11] MEDS ORDERED: PENICILLIN G-K 5 MILLION UNIT VIAL IV SCH (10:00)
[2018-08-11] MEDS: IBUPROFEN 800 MG TABLET PO SCH ×3 (10:17→20:13)
[2018-08-11] MEDS: KETOROLAC TROMETHAMINE INJ/PF 30 MG/1 ML SDV IV SCH ×3 (10:18→22:14)
[2018-08-11] MEDS ORDERED: DOCUSATE SODIUM 100 MG CAPSULE ONE (10:20)
[2018-08-11] MEDS ORDERED: PRENATAL VITAMIN W DHA CAPSULE PO ONE (10:20)
[2018-08-11] MEDS: PRENATAL VITAMIN W DHA CAPSULE PO SCH (10:24)
[2018-08-11] MEDS: DOCUSATE SODIUM 100 MG CAPSULE PO SCH ×2 (10:24→17:45)
[2018-08-11] MEDS ORDERED: DEXAMETHASONE SOD PHOSPHATE INJ 4 MG/1 ML VIAL ONE (11:35)
[2018-08-11] MEDS ORDERED: PHENYLEPHRINE HCL INJ/PF 10 MG/1 ML SDV ONE (11:35)
[2018-08-11] MEDS ORDERED: KETOROLAC TROMETHAMINE 60 MG/2 ML SDV ONE (11:35)
[2018-08-11] MEDS ORDERED: METOCLOPRAMIDE HCL INJ/PF 10 MG/2 ML SDV ONE (11:35)
[2018-08-11] MEDS ORDERED: IBUPROFEN 800 MG TABLET ONE (12:20)
[2018-08-11] MEDS: RINGERS SOLUTION,LACTATED 1,000 ML IV PRN (13:18)
[2018-08-11] MEDS ORDERED: KETOROLAC TROMETHAMINE INJ/PF 30 MG/1 ML SDV ONE (15:10)
[2018-08-11] MEDS: OXYCODONE-ACETAMINOPHEN 5-325 MG TABLET PO PRN (17:45)
[2018-08-11] MEDS ORDERED: AMPICILLIN SOD/SULBACTAM 3 GM VIAL IV PRN (23:30)
[2018-08-11] MEDS ORDERED: AMPICILLIN SODIUM/SULBACTAM NA 3 GM in NORMAL SALINE 100 ML IV ONE (23:59)
[2018-08-12] MEDS: IBUPROFEN 800 MG TABLET PO SCH ×5 (00:56→23:08)
[2018-08-12] MEDS ORDERED: AMPICILLIN SODIUM/SULBACTAM NA 3 GM in NORMAL SALINE 100 ML IV SCH (06:00)
[2018-08-12] MEDS ORDERED: AMPICILLIN SODIUM/SULBACTAM NA 3 GM in NORMAL SALINE 100 ML IV ONE (06:00)
[2018-08-12] MEDS: SIMETHICONE 80 MG TAB.CHEW PO PRN ×2 (08:09→17:39)
[2018-08-12] MEDS: OXYCODONE-ACETAMINOPHEN 5-325 MG TABLET PO PRN (08:33)
[2018-08-12 08:41] LABS: HEMATOCRIT 18.8 % (36.0-47.0); MEAN CORPUSCULAR HEMOGLOBIN 29.2 pg (27.0-33.4); MEAN CORPUSCULAR HGB CONC 33.8 g/dL (32.0-36.0); MEAN CORPUSCULAR VOLUME 87 fl (80-97); PLATELET COUNT 251 10^3/uL (150-450); RED BLOOD COUNT 2.17 10^6/uL (3.72-5.28); RED CELL DISTRIBUTION WIDTH 13.6 % (11.5-14.0); WHITE BLOOD COUNT 11.8 10^3/uL (4.0-10.5)
[2018-08-12 08:48] LABS: HEMOGLOBIN 6.3 g/dL (12.0-15.5)
--- NOTE | 2018-08-12 09:50 | PDOC PROGRESS REPORT ---
Subjective-OB Progress Note for:: 08/12/18 - POD #1, s/p Primary for failed IOL due to Severe Pre-Eclampsia at 36 wks. Baby in NICN, pt is pumping. Rode in wheelchair to NICU this morning. Denies h/a, blurred vision or epigastric pain, denies SOB. Hgb this morning is 6.3 Physical Exam (OB) Vital Signs: Temp Pulse Resp BP Pulse Ox 97.5 F 118 H 15 123/79 100 08/12/18 08:38 08/12/18 08:38 08/12/18 08:38 08/12/18 08:38 08/12/18 08:38 Intake & Output 08/11/18 08/12/18 08/13/18 06:59 06:59 06:59 Intake Total 300 1000 Output Total 900 Balance -600 1000 - General General Appearance: Appears well, Alert In distress: None - PIH/Pre-Eclampsia DTR's: 1 + Clonus: Negative Headache: Absent Epigastric Pain: No Visual Changes: No - Dressing Removed: No Incision: Dressing Closure Type: Sutures Note: Clean, dry, intact - Lochia Lochia Amount: Scant < 10 ml Lochia Color: Rubra/Red - Abdomen Description: Soft, Round Hernia Present: No Fundal Description: Firm, Midline Fundal Height: u/u - u/2 - Respiratory Respiratory Status: No respiratory distress Chest Status: Nontender Breath sounds: Clear - Cardiovascular Rhythm: Regular - Abdominal Inspection: Normal Distension: No distension Abdominal Notes: +bowel sounds - Genitourinary Genitourinary Note: voiding - Extremities Upper extremity: Normal inspection Lower extremities: Edema - Neurological Cognition: Normal Orientation: AAOx4, Alert - Psychological Associated symptoms: Normal affect, Normal mood - Skin Skin Temperature: Warm Skin Moisture: Dry Objective-Diagnostic Laboratory: 08/12/18 07:38 08/11/18 05:24 08/11/18 08/12/18 13:00 07:38 WBC 11.8 H RBC 2.17 L Hgb 6.3 L D Hct 18.8 L MCV 87 MCH 29.2 MCHC 33.8 RDW 13.6 Plt Count 251 Magnesium 5.8 H* D Assessment and Plan(PN) - Assessment and Plan (1) Severe pre-eclampsia Qualifiers: Trimester: third trimester Qualified Code(s): O14.13 - Severe pre- eclampsia, third trimester Is this a current diagnosis for this admission?: Yes (2) S/P primary low transverse Is this a current diagnosis for this admission?: Yes (3) Anemia, Is this a current diagnosis for this admission?: Yes - Time Spent with Patient Time with patient: Less than 15 minutes Medications reviewed and adjusted accordingly: Yes - Disposition Anticipated Discharge: Home Within: within 48 hours
[2018-08-12] MEDS: DOCUSATE SODIUM 100 MG CAPSULE PO SCH ×2 (10:24→17:39)
[2018-08-12] MEDS: PRENATAL VITAMIN W DHA CAPSULE PO SCH (10:24)
[2018-08-12] MEDS ORDERED: NORMAL SALINE 250 ML IV PRN (11:26)
[2018-08-12 12:41] LABS: HEMATOCRIT 18.8 % (36.0-47.0); MEAN CORPUSCULAR HEMOGLOBIN 29.4 pg (27.0-33.4); MEAN CORPUSCULAR HGB CONC 33.9 g/dL (32.0-36.0); MEAN CORPUSCULAR VOLUME 87 fl (80-97); PLATELET COUNT 281 10^3/uL (150-450); RED BLOOD COUNT 2.17 10^6/uL (3.72-5.28); RED CELL DISTRIBUTION WIDTH 13.4 % (11.5-14.0); WHITE BLOOD COUNT 13.4 10^3/uL (4.0-10.5)
[2018-08-12] MEDS: FERROUS SULFATE 325 MG TABLET PO SCH (12:46)
[2018-08-12 12:48] LABS: HEMOGLOBIN 6.4 g/dL (12.0-15.5)
[2018-08-13] MEDS: IBUPROFEN 800 MG TABLET PO SCH ×2 (05:21→11:49)
[2018-08-13] MEDS: DOCUSATE SODIUM 100 MG CAPSULE PO SCH (09:53)
[2018-08-13] MEDS: PRENATAL VITAMIN W DHA CAPSULE PO SCH (09:53)
[2018-08-13] MEDS: FERROUS SULFATE 325 MG TABLET PO SCH (09:53)
[2018-08-13 10:12] LABS: HEMATOCRIT 23.8 % (36.0-47.0); HEMOGLOBIN 8.2 g/dL (12.0-15.5); MEAN CORPUSCULAR HEMOGLOBIN 29.7 pg (27.0-33.4); MEAN CORPUSCULAR HGB CONC 34.6 g/dL (32.0-36.0); MEAN CORPUSCULAR VOLUME 86 fl (80-97); PLATELET COUNT 256 10^3/uL (150-450); RED BLOOD COUNT 2.77 10^6/uL (3.72-5.28); RED CELL DISTRIBUTION WIDTH 14.1 % (11.5-14.0); WHITE BLOOD COUNT 11.4 10^3/uL (4.0-10.5)
--- NOTE | 2018-08-13 12:11 | PDOC DISCHARGE SUMMARY ---
Final Diagnosis Discharge Date: 08/13/18 - Final Diagnosis (1) Severe pre-eclampsia Is this a current diagnosis for this admission?: Yes (2) S/P primary low transverse Is this a current diagnosis for this admission?: Yes (3) Anemia, Is this a current diagnosis for this admission?: Yes (4) Acute blood loss anemia Is this a current diagnosis for this admission?: Yes (5) Blood transfusion during current hospitalization Is this a current diagnosis for this admission?: Yes Discharge Data - Discharge Medication Prescriptions: Oxycodone HCl/Acetaminophen [Percocet 5-325 mg Tablet] 1 tab PO Q4HP PRN #20 tablet PRN Reason: For Pain Scale 3-5 Ibuprofen [Motrin 800 mg Tablet] 800 mg PO Q8HP PRN #30 tablet PRN Reason: Abdominal Cramping Docusate Sodium [Colace 100 mg Capsule] 100 mg PO BID #60 capsule Ferrous Sulfate [Feosol 325 mg Tablet] 325 mg PO DAILY #60 tablet Home Medications: Vit,Calc76/Iron/Folic [Prenatabs Rx Tablet] 1 tab PO DAILY 07/12/18 Docusate Sodium [Colace 100 mg Capsule] 100 mg PO BID #60 capsule 08/13/18 Ferrous Sulfate [Feosol 325 mg Tablet] 325 mg PO DAILY #60 tablet 08/13/18 Ibuprofen [Motrin 800 mg Tablet] 800 mg PO Q8HP PRN #30 tablet 08/13/18 Oxycodone HCl/Acetaminophen [Percocet 5-325 mg Tablet] 1 tab PO Q4HP PRN #20 tablet 08/13/18 Reason(s) for Admission: Induction of Labor Procedures: NST, Ultrasound Intrapartum Procedure(s): : Low Cervical, Transverse Complication(s): Other - blood transfusion - Diagnosis Test Laboratory: Temp Pulse Resp BP Pulse Ox 98.5 F 97 16 130/81 H 99 08/13/18 09:30 08/13/18 09:30 08/13/18 09:30 08/13/18 09:30 08/13/18 09:30 08/08/18 08/08/18 08/10/18 16:25 17:45 20:53 RBC 4.06 3.98 Hgb 11.8 L 11.5 L Hct 34.4 L 33.8 L Urine Opiates Screen NEGATIVE 08/11/18 08/12/18 08/12/18 05:24 07:38 12:08 RBC 3.44 L 2.17 L 2.17 L Hgb 9.9 L 6.3 L D 6.4 L Hct 29.5 L 18.8 L 18.8 L Urine Opiates Screen 08/13/18 10:00 RBC 2.77 L Hgb 8.2 L Hct 23.8 L Urine Opiates Screen - Discharge information/Instructions Discharge Activity: Activity As Tolerated, Balance Activity w/Rest, No Driving, No Lifting Over 10 Pounds, No Lifting/Push/Pulling, Slowly Increase Activity, No tub bath, Walk Frequently Discharge Diet: As Tolerated, Regular Disposition: HOME, SELF-CARE Follow up with: [facility] in: 2, Days - blood pressure check
[2018-08-13 14:23] VITALS: BP 136/82
== END 2018-08-13 15:00 | disposition home or self-care (01) | DRG 787 ==
LOC: LC 16:14 → LR 18:26 → 2S 08-11 17:41
PROVIDERS: ADMIT Obstetrics & Gynecology; ATTEND Obstetrics & Gynecology
PROC: 10D00Z1 Extraction of Products of Conception, Low, Open Approach (ICD-10-PCS; principal; 2018-08-11)
PROC: 3E033VJ Introduction of Other Hormone into Peripheral Vein, Percutaneous Approach (ICD-10-PCS; 2018-08-11)
PROC: 0U7C7ZZ Dilation of Cervix, Via Natural or Artificial Opening (ICD-10-PCS; 2018-08-11)
PROC: 4A1HX4Z Monitoring of Products of Conception, Cardiac Electrical Activity, External Approach (ICD-10-PCS; 2018-08-11)
PROC: 30233N1 Transfusion of Nonautologous Red Blood Cells into Peripheral Vein, Percutaneous Approach (ICD-10-PCS; 2018-08-12)
DX: O14.14 Severe pre-eclampsia complicating childbirth (principal); D62 Acute posthemorrhagic anemia; Z3A.36 36 weeks gestation of pregnancy; Z37.0 Single live birth; O90.81 Anemia of the puerperium; O61.0 Failed medical induction of labor
CPT/HCPCS: 1961; 36415; 36430; 80053; 80307; 81001; 82570; 83615; 83735; 84156; 84550; 85027; 86592; 86850; 86870; 86900; 86901; 86920; 86922; 94799; C1758; J0295; J0360; J0690; J0702; J1100; J1885; J2270; J2300; J2370; J2405; J2540; J2550; J2590; J2765; J3010; J3475; J3490; P9016

== ENCOUNTER 2020-06-09 09:52 | Emergency (ER) | payer BC ==
--- NOTE | 2020-06-09 11:32 | ER Document Report ---
ED Medical Screen (RME) - General Chief Complaint: Abdominal Cramping Stated Complaint: ABDOMINAL CRAMPING Time Seen by Provider: 06/09/20 11:26 TRAVEL OUTSIDE OF THE [place] IN LAST 30 DAYS: No - HPI Notes: 06/09/20 11:30 25-year-old female LMP 05/06/2020, G2, P1, positive test 2 days ago presents to the emergency room with vaginal bleeding that started last night and became heavier this morning with abdominal cramping. Denies any nausea, vomiting, fevers, chills, diarrhea. Patient has gone through 1 pad of this morning. Denies any trauma. Has not established with an FEEDER ASSOCIATE. I have greeted and performed a rapid initial assessment of this patient. A comprehensive ED assessment and evaluation of the patient, analysis of test results and completion of the medical decision making process will be conducted by additional ED providers. PHYSICAL EXAMINATION: GENERAL: Well-appearing, well-nourished and in no acute distress. CV: s1, s2 regular LUNGS: No respiratory distress abd: pelvic pain on palpation. no cva tenderness bilaterally Musculoskeletal: Normal range of motion NEUROLOGICAL: Normal speech, normal gait. SKIN: Warm, Dry, normal turgor, no rashes or lesions noted. The patient was evaluated during a global COVID-19 pandemic and that diagnosis was suspected/considered upon their initial presentation. Their evaluation, treatment and testing was consistent with current guidelines for patients who present with complaints or symptoms and may be related to COVID-19. - Related Data Allergies/Adverse Reactions: No Known Allergies Allergy (Verified 08/08/18 16:39) Physical Exam - Vital signs Vitals: Temp Pulse Resp BP Pulse Ox 98.3 F 77 16 140/78 H 100 06/09/20 09:54 06/09/20 09:54 06/09/20 09:54 06/09/20 09:54 06/09/20 09:54 Course - Vital Signs Vital signs: Temp Pulse Resp BP Pulse Ox 98.3 F 77 16 140/78 H 100 06/09/20 09:54 06/09/20 09:54 06/09/20 09:54 06/09/20 09:54 06/09/20 09:54
[2020-06-09 12:20] LABS: ABSOLUTE EOSINOPHILS # (AUTO) 0.1 10^3/uL (0.0-0.6); ABSOLUTE LYMPHOCYTES (AUTO) 2.4 10^3/uL (0.5-4.7); ABSOLUTE MONOCYTES (AUTO) 0.6 10^3/uL (0.1-1.4); ABSOLUTE NEUT (AUTO) 6.1 10^3/uL (1.7-8.2); BASOPHILS % (AUTO) 0.5 % (0-2); EOSINOPHILS % (AUTO) 1.5 % (0-6); HEMATOCRIT 39.5 % (36.0-47.0); HEMOGLOBIN 13.6 g/dL (12.0-15.5); LYMPHOCYTES % (AUTO) 26.1 % (13-45); MEAN CORPUSCULAR HEMOGLOBIN 30.7 pg (27.0-33.4); MEAN CORPUSCULAR HGB CONC 34.4 g/dL (32.0-36.0); MEAN CORPUSCULAR VOLUME 89 fl (80-97); MONOCYTES % (AUTO) 6.6 % (3-13); PLATELET COUNT 310 10^3/uL (150-450); RED BLOOD COUNT 4.43 10^6/uL (3.72-5.28); RED CELL DISTRIBUTION WIDTH 12.6 % (11.5-14.0); SEGMENTED NEUTROPHILS % (AUTO) 65.3 % (42-78); TOTAL CELLS COUNTED % (AUTO) 100 %; WHITE BLOOD COUNT 9.4 10^3/uL (4.0-10.5)
[2020-06-09 12:35] LABS: ALBUMIN 4.4 g/dL (3.5-5.0); ALKALINE PHOSPHATASE 63 U/L (38-126); ANION GAP 7 (5-19); ASPARTATE AMINO TRANSFERASE 22 U/L (14-36); BILIRUBIN,DIRECT 0.1 mg/dL (0.0-0.4); BILIRUBIN,TOTAL 0.5 mg/dL (0.2-1.3); BLOOD UREA NITROGEN 10 mg/dL (7-20); CALCIUM 9.7 mg/dL (8.4-10.2); CARBON DIOXIDE 29 mmol/L (22-30); CHLORIDE 107 mmol/L (98-107); GLUCOSE 86 mg/dL (75-110); POTASSIUM 4.7 mmol/L (3.6-5.0); TOTAL PROTEIN 7.3 g/dL (6.3-8.2)
--- NOTE | 2020-06-09 12:35 | RADIOLOGY REPORT (SQ) ---
EXAM DESCRIPTION: U/S OB TRANSVAGINAL W/O DOP IMAGES COMPLETED DATE/TIME: 06/09/2020 12:18 pm REASON FOR STUDY: vag bleed, +preg test [id number], lmp 05/06 COMPARISON: None. TECHNIQUE: Transvaginal static and realtime grayscale images acquired of the pelvis. Additional sandra cted spectral and color Doppler images recorded. All images stored on PACs. CLINICAL AGE: 4 weeks, 6 days BHCG: Pending. LIMITATIONS: None. FINDINGS: UTERUS: No visualized intrauterine . RIGHT ADNEXA: Normal ovary with normal vascular flow. No adnexal free fluid. No adnexal masses. LEFT ADNEXA: Normal ovary with normal vascular flow. No adnexal free fluid. No adnexal masses. FREE FLUID: A small amount of simple appearing free fluid is seen within the pelvic cul-de-sac. OTHER: No other significant finding. IMPRESSION: NO VISUALIZED INTRA- OR EXTRAUTERINE . bHCG LEVEL NOT AVAILABLE FOR CORRELATION WITH US FINDINGS. ECTOPIC CANNOT BE EXCLUDED. FOLLOW-UP ULTRASOUND AND SERIAL BHCG LEVELS STRONGLY RECOMMENDED TO ACCURATELY ASSESS STATU S. TECHNICAL DOCUMENTATION: JOB ID: [id number] 2010 [email or web address] All Rights Reserved Reading location - IP/workstation name: [email or web address]
[2020-06-09 12:40] LABS: APPEARANCE,URINE CLEAR; BILIRUBIN,URINE NEGATIVE (NEGATIVE); COLOR,URINE YELLOW; GLUCOSE, URINE NEGATIVE (NEGATIVE); KETONES,URINE NEGATIVE (NEGATIVE); LEUKOCYTE ESTERASE,URINE NEGATIVE (NEGATIVE); NITRITE,URINE NEGATIVE (NEGATIVE); PROTEIN,URINE NEGATIVE (NEGATIVE); URINE SPECIFIC GRAVITY 1.012; UROBILINOGEN,URINE NEGATIVE mg/dL (<2.0)
--- NOTE | 2020-06-09 14:39 | ER Document Report ---
ED General - General Chief Complaint: Vaginal Bleeding Stated Complaint: ABDOMINAL CRAMPING Time Seen by Provider: 06/09/20 11:26 TRAVEL OUTSIDE OF THE [place] IN LAST 30 DAYS: No - HPI Notes: Chief complaint: Vaginal bleeding and pelvic cramping History of present illness: 25-year-old 2 para 1 with last menses mid April (about 6 weeks ago) and positive test at home x2 has developed spotting within the last 24 hours and this morning passed large clots and what appeared to be tissue at home. She is having no ongoing bleeding now and cramping has resolved. - Related Data Allergies/Adverse Reactions: No Known Allergies Allergy (Verified 08/08/18 16:39) Past Medical History - General Information source: Patient, [facility] [place] Records - Social History Smoking Status: Unknown if Ever Smoked Frequency of alcohol use: Rare Drug Abuse: None Lives with: Family Family History: Reviewed & Not Pertinent - Medical History Medical History: Negative Review of Systems - Review of Systems Notes: Constitutional: Negative for fever. HENT: Negative for sore throat. Eyes: Negative for visual changes. Cardiovascular: Negative for chest pain. Respiratory: Negative for shortness of breath. Gastrointestinal: Negative for abdominal pain, vomiting or diarrhea. Genitourinary: As per HPI. Musculoskeletal: Negative for back pain. Skin: Negative for rash. Neurological: Negative for headaches, weakness or numbness. 10 point ROS negative except as marked above and in HPI. Physical Exam - Vital signs Vitals: Temp Pulse Resp BP Pulse Ox 98.3 F 77 16 140/78 H 100 06/09/20 09:54 06/09/20 09:54 06/09/20 09:54 06/09/20 09:54 06/09/20 09:54 - Notes Notes: GENERAL: Well-developed well-nourished female approximately stated age appearing in no acute distress. SKIN: Good turgor no rashes. HEAD: Normocephalic atraumatic. EYES: PERRLA. EOMI. Conjunctivae and sclerae clear. NECK: Supple. No masses or thyromegaly. No adenopathy. Carotids 2+ without bruits. No JVD. BACK: Symmetrical without tenderness. CHEST: Respirations unlabored. Breath sounds clear and symmetrical. HEART: Regular rhythm. No murmur gallop or rub. ABDOMEN: Soft nontender without masses, organomegaly or rebound. Bowel sounds normally active. No bruits. EXTREMITIES: No edema. No calf tenderness. Cap refill less than 1.5 seconds. Dorsalis pedis and posterior tibial pulses 3+ and symmetrical. Pelvic: Normal external genitalia and hair distribution. Small amount of clotted blood in the vaginal vault. Closed cervical os. Uterus is small firm and mid position. No adnexal masses or tenderness. NEUROLOGICAL: Alert and oriented x3. Nonfocal. PSYCHIATRIC: Appropriate affect. Course - Re-evaluation Re-evalutation: 06/09/20 14:56 Serum beta-hCG seven. Pelvic ultrasound negative for IUP or adnexal mass per radiologist. Clinically this appears to be a completed spontaneous miscarriage. Patient is Rh- and will receive RhoGam. Patient is to follow-up in the office with her POND SUPERVISOR. May take Tylenol as needed. Understanding - Vital Signs Vital signs: Temp Pulse Resp BP Pulse Ox 98.3 F 77 16 140/78 H 100 06/09/20 09:54 06/09/20 09:54 06/09/20 09:54 06/09/20 09:54 06/09/20 09:54 - Laboratory Results Result Diagrams: 06/09/20 11:43 06/09/20 11:43 Laboratory Results Interpreted: 06/09/20 06/09/20 11:43 11:43 Beta HCG, Quant 7.86 H Urine Blood MODERATE H Critical Laboratory Results Reviewed: Yes Attending or Supervising Physician who Reviewed Labs: TELLY MACARIO - Radiology Results Radiology Results Interpreted: 06/09/20 15:01 Obstetrics Ultrasound 06/09/20 11:29 IMPRESSION: NO VISUALIZED INTRA- OR EXTRAUTERINE . bHCG LEVEL NOT AVAILABLE FOR CORRELATION WITH US FINDINGS. ECTOPIC CANNOT BE EXCLUDED. FOLLOW-UP ULTRASOUND AND SERIAL BHCG LEVELS STRONGLY RECOMMENDED TO ACCURATELY ASSESS STATUS. Critical Radiology Results Reviewed: No Critical Results Attending or Supervising Physician who Reviewed Radiology: TELLY MACARIO Discharge - Discharge Clinical Impression: Spontaneous miscarriage Condition: Stable Disposition: HOME, SELF-CARE Additional Instructions: Tylenol or ibuprofen as needed for pain. Return here as needed for any of the following: Heavy bleeding Severe pelvic pain Fever or chills. Follow-up with your [employer] SUPERVISOR doctor within the next 7 to 10 days.
[2020-06-09 15:25] VITALS: BP 116/79
== END 2020-06-09 15:26 | disposition home or self-care (01) ==
LOC: ER 09:52
DX: O03.9 Complete or unspecified spontaneous abortion without complication (principal); Z3A.01 Less than 8 weeks gestation of pregnancy
CPT/HCPCS: 99284; 86900; 86901; 36415; 86850; 84702; 85025; 80053; 81001; 76817; J2790